=== PATIENT | male | born 2000 | race African-American/Black ===

== ENCOUNTER 2025-08-20 04:00 | Emergency (ER) | payer OTHER, SELFPAY ==
--- NOTE | 2025-08-20 03:58 | ECG_ITS ---
APPROVED REPORT Exam: Resting ECG HR:79 bpm ECG Measurements Heart Rate 79 AXES MD 179 P 48 QRSd 113 QRS 87 QT 405 T 16 QTc 440 Conclusion SINUS RHYTHM MODERATE INTRAVENTRICULAR CONDUCTION DELAY [110+ ms QRS DURATION] No STEMI Electronically signed by : JOSE HU, 08/20/2025 07:10:55
[2025-08-20 04:08] VITALS: BP 161/139; PULSE 92; RESP 16; TEMP 37.2; O2SAT 99; BMI 28.8
[2025-08-20 04:31] VITALS: BP 145/99; PULSE 78; RESP 16; O2SAT 100
--- NOTE | 2025-08-20 04:36 | XR_ITS ---
PROCEDURE INFORMATION: Exam: XR Chest Exam date and time: 08/20/2025 4:41 AM Age: 25 years old Clinical indication: Pain; Chest pressure; Additional info: Chest pain TECHNIQUE: Imaging protocol: Radiologic exam of the chest. Views: 2 views. COMPARISON: No relevant prior studies available. FINDINGS: Lungs: Peribronchial interstitial infiltrates are present bilaterally. No airspace disease. Pleural spaces: No pleural effusions. Heart/Mediastinum: Unremarkable. No cardiomegaly. Bones/joints: Osseous structures are appropriate for age. IMPRESSION: Airways disease or infectious bronchitis. No definite acute airspace pneumonia.
[2025-08-20 04:44] LABS: Hematocrit 43.0 % (42.0-52.0); Hemoglobin 15.3 g/dL (14.1-18.0); Immature Granulocytes % 0.2 %; Mean Corpuscular HGB Conc 35.6 g/dL (31.8-35.4); Mean Corpuscular Hemoglobin 31.4 pg (27.0-31.2); Mean Corpuscular Volume 88.1 fl (80-94); Nucleated Red Blood Cells % 0 %; Platelet Count 303 K/mm3 (142-424); Red Blood Count 4.88 M/mm3 (4.60-6.20); Red Cell Distribution Width-SD 37.6 fL; White Blood Count 12.9 K/mm3 (4.8-10.8)
[2025-08-20 04:45] VITALS: BP 141/92; PULSE 80; RESP 10; O2SAT 97
[2025-08-20] MEDS: ASPIRIN 81MG CHEWABLE TABLET 324 MG PO (04:45)
[2025-08-20 04:49] LABS: Albumin Level 4.9 g/dl (3.5-5.0); Albumin/Globulin Ratio 1.4 (1.1-1.8); Alkaline Phosphatase 75 U/L (38-126); Bilirubin,Total 0.7 mg/dl (0.2-1.3); Blood Urea Nitrogen 14 mg/dl (9-20); Carbon Dioxide 31 mmol/L (22.0-30.0); Chloride 96 mmol/L (98-107); Creatinine Clearance Estimated 152 mL/min (50-200); Creatinine,Serum 0.90 mg/dl (0.66-1.25); Estimated Glomerular Filt Rate 102 ml/min (>60); GFR (African American) 123 ML/MIN (>60); Globulin 3.4 g/dL (1.3-3.2); Potassium 3.6 mmoL/L (3.5-5.1); Total Protein,Serum 8.3 g/dl (6.3-8.2)
[2025-08-20 04:51] LABS: Alanine Aminotransferase 54 U/L (12-78); Anion Gap 15.6 mEq/L (5-15); Aspartate Amino Transferase 47 U/L (17-59); Calcium 9.3 mg/dl (8.4-10.2); Sodium 139 mmol/L (136-145)
[2025-08-20 05:02] LABS: Troponin I < 0.01 ng/ml (0.00-0.034)
[2025-08-20 05:11] LABS: Glucose 124 mg/dl (74-100)
--- NOTE | 2025-08-20 05:13 | ED_ITS ---
Discharge Plan Disposition Patient Disposition: Home, Self-Care Condition: Good Referrals Follow up/Referrals: Flo Wilde DO [Staff Physician, Family Practice] - See instructions Referral Note: Establish care, follow-up chest pain with reassuring ER workup Flo Gallegos MD [Staff Physician, Cardiology] - See instructions Referral Note: Follow-up chest pain Activity Restrictions/Add. Instructions Additional Instructions/Restrictions: You were evaluated in the ER and are believed to be appropriate for discharge at this time. Make an appointment with your primary care doctor for reevaluation in 2 to 3 days. Call the cardiology office and schedule an appointment for follow-up with them as well. Return to the ER with any new, worsening, or otherwise concerning symptoms. Clinical Impressions Clinical Impression: Chest pain Discharge ED Provider: Saeid Cornejo General Chief Complaint: Chest Pain Stated Complaint: Chest Pain Time Seen by Provider: 08/20/25 04:19 Mode of Arrival: Ambulatory Source of Information: Patient Description of Symptoms (Recalled from ER Triage Doc. by RN): PT presents to the ED for evaluation of CP. PT stated his CP started 08/19/2025 at 1800 took 2 81 mg of aspirin. History of Present Illness HPI narrative: 25-year-old male who is otherwise healthy presents to the ER for evaluation of chest pain. He reports that started 08/19/2025 over 8 hours prior to arrival. Patient took 2 aspirin without resolution of symptoms. He states the pain was sharp in the left chest, he does report some anxiety and specifically stressful workday, he states his hand was tingly for a while but this has resolved. He reports he is currently asymptomatic while sitting in the ER. He has no difficulty breathing, no headache, dizziness, or weakness, no nausea, vomiting, or diarrhea. No swelling in the feet or legs. No other complaints or concerns. He reports he drinks minimal caffeine and his last caffeine was a cup of coffee he had nearly 24 hours ago. Related Data Allergies Allergy/AdvReac Type Severity Reaction Status Date / Time No Known Allergies Allergy Verified 08/20/25 04:12 [facility] Disclaimer: The information contained in this section may have been updated after the patient was seen, as this information can be updated by other users. Social History Smoking Status: Never smoker alcohol intake: never current occupational status: employed Travel in the last 8 weeks?: None ROS Obtained: Yes Systems reviewed as appropriate & no additional complaints except as documented per HPI Physical Exam General General appearance: alert and in no apparent distress Head Head exam: atraumatic and normocephalic Eye Eye exam: Present PERRL and EOMI ENT ENT exam: Present mucous membranes moist Neck Neck exam: Present normal inspection and full ROM Chest Chest inspection: Present symmetric chest wall rise Respiratory Respiratory exam: Present normal lung sounds bilaterally; Absent respiratory distress, wheezes or stridor Cardiovascular Cardiovascular exam: Present regular rate and normal rhythm Abdominal Exam Abdominal exam: Present soft; Absent distention or tenderness Extremities Exam Extremities exam: Present full ROM and normal capillary refill; Absent edema Neurological Exam Neurological exam: Present alert and oriented X3; Absent motor sensory deficit Psychiatric Psychiatric exam: Present normal affect and normal mood Skin Skin exam: Present warm and dry HEART Score HEART Score HEART Score assessment performed?: Yes History (anamnesis): Slightly suspicious ECG: Normal Age: <45 years Risk factors: No known risk factors Troponin: </= normal limit HEART Score: 0 Critical Care Critical Care Time Critical Care Time: No Medical Decision Making Stanley Inquiry Pt receiving controlled substance: No Vital Signs Vital Signs: 08/20/25 04:08 08/20/25 04:31 08/20/25 04:45 Temperature 98.9 F Temperature Source Oral Pulse Rate 78 80 Pulse Rate [Right] 92 H Respiratory Rate 16 16 10 L Blood Pressure 145/99 H 141/92 H Blood Pressure [Right Arm] 161/139 H Blood Pressure Mean [Right Arm] 146 Blood Pressure Position Sitting 02 Sat by Pulse Oximetry 99 100 97 Oxygen Delivery Method Room Air Room Air Lab Data Labs: Lab Results 08/20/25 04:04: WBC 12.9 H, RBC 4.88, Hgb 15.3, Hct 43.0, MCV 88.1, MCH 31.4 H, MCHC 35.6 H, RDW 11.7, Plt Count 303, MPV 11.1 H, Neut % (Auto) 50.3, Lymph % (Auto) 37.3, [place] % (Auto) 8.1, Eos % (Auto) 3.5, Baso % (Auto) 0.6, Neut # (Auto) 6.5, Lymph # (Auto) 4.8 H, [place] # (Auto) 1.1 H, Eos # (Auto) 0.5 H, Baso # (Auto) 0.1, Sodium 139, Potassium 3.6, Chloride 96 L, Carbon Dioxide 31 H, [place] 15.6 H, BUN 14, Creatinine 0.90, Estimated Creat Clear 152, Estimated GFR 102, Est GFR ( Amer) 123, Glucose 124 H, Calcium 9.3, Total Bilirubin 0.7, AST 47, ALT 54, Alkaline Phosphatase 75, Troponin I < 0.01, Total Protein 8.3 H, Albumin 4.9, Globulin 3.4 H, Albumin/Globulin Ratio 1.4, HIV Ag/Ab Combo Qual Negative 08/20/25 04:04 08/20/25 04:04 Response Orders (Tests/Meds): ED MEDICATIONS Discontinued Medications Generic Name Dose Route Start Last Admin Trade Name Freq PRN Reason Stop Dose Admin Aspirin 324 mg 08/20/25 04:35 08/20/25 04:45 Aspirin 81mg Chewable Tablet PO 08/20/25 04:36 324 mg ONCE ONE Administration ORDERS Category Date Time Status XR chest 2V Stat Exams 08/20/25 04:36 Taken Complete Blood Count Auto Diff Stat Lab 08/20/25 04:04 Completed Comprehensive Metabolic Panel Stat Lab 08/20/25 04:04 Completed HIV Combo Stat Lab 08/20/25 04:04 Completed Hepatitis C Ab Qual. W/ RFX Stat Lab 08/20/25 04:04 Received Troponin I Q3H Lab 08/20/25 07:45 Ordered Troponin I Q3H Lab 08/20/25 10:45 Ordered Troponin I Stat Lab 08/20/25 04:04 Completed MDM Narrative Medical Decision Narrative: In summary, this otherwise healthy 25-year-old male presents to the emergency department today with chest pain. On initial evaluation patient is hemodynamically stable, afebrile, overall very well-appearing, no chest wall tenderness, benign cardiopulmonary exam, normal abdominal exam, no peripheral edema, GCS 15, no neurologic deficits. Differential diagnosis includes but is not limited to ACS, I considered PE but patient is PERC negative, also considered esophageal spasm, pneumothorax, pneumonia, anxiety, among others. Based on these concerns, I ordered hematologic and serum labs, cardiac workup, cardiac enzymes, chest x-ray. ECG personally interpreted demonstrates normal sinus rhythm, rate 79, normal axis, normal VT and QTc, no STEMI. Patient received aspirin for treatment. Labs personally reviewed demonstrate slight leukocytosis WBC 12.9, no anemia, normal platelets, CMP not acutely actionable, troponin undetectably low less than 0.01 which is significantly reassuring in the setting of nonischemic ECG and patient's duration of symptoms. I do not believe serial troponins are indicated at this time.. XR personally interpreted demonstrates no acute intrathoracic abnormality, see radiology read for final interpretation. On reassessment patient remains asymptomatic, resting comfortably. He is appropriate for discharge at this time and comfortable with this plan. I provided referral to cardiology for outpatient follow-up which he is going to pursue. He requested a referral to Dr. Wilde for primary care as well and this was provided. Patient was given instructions on symptomatic management, follow up instructions, and return precautions for the emergency department. Patient indicated understanding and was discharged in stable condition.
[2025-08-20 05:19] LABS: Hepatitis C Ab Qual. W/ RFX NEGATIVE (Negative)
[2025-08-20 05:23] VITALS: BP 133/94; PULSE 78; RESP 16; TEMP 36.7; O2SAT 100
== END 2025-08-20 05:23 | disposition home or self-care (01) ==
LOC: ER 05:35
PROVIDERS: Emergency Provider Emergency Medicine
DX: R07.89 Other chest pain (principal)
CPT/HCPCS: 71046; 80053; 84484; 85025; 86803; 87389; 93005; 99285